=== PATIENT | male | born 1985 | race Caucasian/White ===

== ENCOUNTER 2017-03-10 11:24 | Emergency (ER) | payer SELFPAY ==
--- NOTE | 2017-03-10 11:34 | UC ---
Complaint Female HPI - HPI Summary HPI Summary: 32 YEAR OLD MALE PRESENTS WITH COMPLAINS OF LEFT TESTICULAR PAIN AND RETRACTION. - History Of Current Complaint Chief Complaint: UCGU Stated Complaint: TESTICULAR PAIN Time Seen by Provider: 03/10/17 11:33 Hx Obtained From: Patient Onset/Duration: Sudden Onset Timing: Constant Severity Initially: Moderate Severity Currently: Moderate Pain Scale Used: 0-10 Numeric - 5 Character: Sharp Aggravating Factor(s): Movement Alleviating Factor(s): Position - Allergies/Home Medications Allergies/Adverse Reactions: Allergies Allergy/AdvReac Type Severity Reaction Status Date / Time No Known Allergies Allergy Verified 03/10/17 12:02 Home Medications: Home Medications NK [No Home Medications Reported] 03/10/17 [History Confirmed 03/10/17] PMH/Surg Hx/FS Hx/Imm Hx Previously Healthy: Yes - Surgical History Surgical History: None - Family History Known Family History: Positive: None - Social History Alcohol Use: Daily Alcohol Amount: beer Substance Use Type: None Smoking Status (MU): Never Smoked Tobacco Review of Systems Constitutional: Negative Skin: Negative Eyes: Negative ENT: Negative Respiratory: Negative Cardiovascular: Negative Gastrointestinal: Negative Genitourinary: Dysuria, Frequency, Urgency Motor: Negative Neurovascular: Negative Musculoskeletal: Negative Neurological: Negative Psychological: Negative All Other Systems Reviewed And Are Negative: Yes Physical Exam Triage Information Reviewed: Yes Appearance: Well-Appearing Vital Signs: Initial Vital Signs Temp 37.5 C 03/10/17 11:27 Pulse 108 03/10/17 11:27 Resp 16 03/10/17 11:27 BP 141/94 03/10/17 11:27 Pulse Ox 100 03/10/17 11:27 Eye Exam: Normal ENT Exam: Normal Dental Exam: Normal Neck exam: Normal Neck: Positive: 1 Respiratory Exam: Normal Cardiovascular Exam: Normal Abdomen Description: Positive: Other: - LEFT TESTICULAR PAIN Musculoskeletal Exam: Normal Neurological Exam: Normal Psychological Exam: Normal Skin Exam: Normal Complaint Female Dx - Differential Dx/Diagnosis Provider Diagnoses: LEFT TESTICULAR PAIN/SWELLING Discharge - Discharge Plan Condition: Stable Disposition: HOME Patient Education Materials: Testicle Pain (ED), Scrotal Pain (ED) Referrals: No Primary Care Phys,NOPCP [Primary Care Provider] - Additional Instructions: PLEASE GO TO ER TO RULE OUT TORSION.
[2017-03-10 11:45] VITALS: BP 141/94
== END 2017-03-10 11:41 | disposition home or self-care (01) ==
LOC: UCEAST 11:24
DX: N50.812 Left testicular pain (principal); N50.89 Other specified disorders of the male genital organs
CPT/HCPCS: 99211; G0463

== ENCOUNTER 2017-03-10 12:00 | Emergency (ER) | payer SELFPAY ==
--- NOTE | 2017-03-10 13:59 | RAD ---
Indication: LEFT testicular pain. Comparison: No relevant prior exams available on the [facility] for comparison. Technique: Scrotal ultrasound. Report: 4.3 x 2.0 x 2.9 cm RIGHT testicle. 3.6 x 2.1 x 3.4 cm LEFT testicle. Normal bilateral testicular echotexture and symmetric normal range vascularity. No focal intratesticular lesions evident. 0.8 x 2.1 cm RIGHT epididymis head with normal range vascularity is remarkable for a 0.7 x 0.5 x 1.0 cm epididymal head cyst or spermatocele. 0.6 x 1.6 cm LEFT epididymis head with normal range vascularity is remarkable for a 0.3 cm epididymal head cyst or spermatocele. Small bilateral hydroceles. Negative for varicoceles. IMPRESSION: 1. No evidence for testicular torsion, epididymoorchitis, or presence of an intratesticular lesion. 2. RIGHT larger than LEFT epididymal head cysts versus spermatoceles without concern. 3. Small bilateral hydroceles.
[2017-03-10] MEDS ORDERED: Levofloxacin TAB* 500 MG PO ONE (14:29)
[2017-03-10] MEDS ORDERED: Ibuprofen TAB* 800 MG PO ONE (14:29)
--- NOTE | 2017-03-10 14:36 | ED ---
GI/ HPI - HPI Summary HPI Summary: Pt here w/ progressively worsening testicular pain. Has had 2 episodes of Lt testicular retraction over past month. First time was weeks ago during ejaculation. Second time was today during running. He admits to h/o testicular tenderness past few days - intermittent. Worse today and persistent with running. Radiates from testicle into lower pelvis and into groin. Better w/ rest. has not taken anything for this yet today. Admits to "malaise" 2 days ago - better after a good night's rest. Denies nasuea, vomiting, fever, chills or flank pain. He is able to urinate and denies hematuria, hematospermia, dysuria, frequency, hesitation. No h/o STD - monogomous with female partner and no concern for STD. - History of Current Complaint Chief Complaint: EDUrogenitalProblems Time Seen by Provider: 03/10/17 12:13 Stated Complaint: TESTICLE PAIN Hx Obtained From: Patient Pain Intensity: 7 - Allergy/Home Medications Allergies/Adverse Reactions: Allergies Allergy/AdvReac Type Severity Reaction Status Date / Time No Known Allergies Allergy Verified 03/10/17 12:02 PMH/Surg Hx/FS Hx/Imm Hx Previously Healthy: Yes Respiratory History: Reports: Hx Asthma - exercise induced - uses albuterol 2 x month History: Denies: Hx Kidney Infection, Hx Kidney Stones, Other Problems/Disorders Infectious Disease History: No Infectious Disease History: Denies: Traveled Outside the [place] in Last 30 Days - Family History Known Family History: Positive: None - Social History Occupation: Employed Full-time Lives: With Family Alcohol Use: Daily Alcohol Amount: beer Hx Substance Use: No Substance Use Type: Reports: None Hx Tobacco Use: No Smoking Status (MU): Never Smoked Tobacco Review of Systems Constitutional: Other - see HPI Eyes: Negative Cardiovascular: Negative Negative: Chest Pain Respiratory: Negative Negative: Shortness Of Breath Gastrointestinal: Negative Positive: see HPI Skin: Negative Negative: Rash Neurological: Negative Positive: Anxious All Other Systems Reviewed And Are Negative: Yes Physical Exam Triage Information Reviewed: Yes Vital Signs On Initial Exam: Initial Vitals Temp Pulse Resp BP Pulse Ox 97.9 F 123 18 161/87 100 03/10/17 12:02 03/10/17 12:02 03/10/17 12:02 03/10/17 12:02 03/10/17 12:02 Vital Signs Reviewed: Yes Appearance: Positive: Well-Appearing, Pain Distress - mild - noted with movement only - appears comfortable at rest, Thin Skin: Positive: Warm, Dry Head/Face: Positive: Normal Head/Face Inspection Eyes: Positive: EOMI ENT: Positive: Hearing grossly normal Respiratory/Lung Sounds: Positive: Breath Sounds Present Cardiovascular: Positive: Normal Abdomen Description: Positive: Nontender, Soft. Negative: CVA Tenderness (R), CVA Tenderness (L) Bowel Sounds: Positive: Present Male Genital Exam: Positive: no hernia, epididymal tenderness - Lt, other - Lt testicle is elevated compared to Rt. Negative: bleeding, erythema, testicular tenderness (R), testicular tenderness (L), urethral discharge Musculoskeletal: Positive: Normal, Strength/ROM Intact Neurological: Positive: Normal, Sensory/Motor Intact, Alert, Oriented to Person Place, Time, CN Intact II-III Psychiatric: Positive: Normal - concerned but calm and cooperative Diagnostics - Vital Signs Vital Signs Temp Pulse Resp BP Pulse Ox 03/10/17 12:13 97.9 F 123 18 161/87 100 03/10/17 12:02 97.9 F 123 18 161/87 100 - Laboratory Lab Statement: Any lab studies that have been ordered have been reviewed, and results considered in the medical decision making process. GIGU Course/Dx - Course Course Of Treatment: Discussed course of testing and tx w/ pt for this condition. He does not believe he has an STD therefore does not want empirical tx today - would rather provide urine sample for gonorrhea, chlamydia testing and simply start tx for e. coli today. He unfortunately urinated multiple times since here and most recently was 20 minutes ago. Will allow him to provide sample here in 2 hours and will call if (+) to tx as appropriate. He does have B /L epididymal cysts with inflammation and elevation of Lt testicle (appears retracted). Will f/u w/ urology this week as he is also concerned about fertility if this persists. - Diagnoses Provider Diagnoses: Hydrocele, bilateral, Epididymal cyst, Epididymitis Discharge - Discharge Plan Condition: Stable Disposition: HOME Prescriptions: Levofloxacin TAB* [Levaquin TAB*] 500 mg PO DAILY #9 tab Patient Education Materials: Epididymitis (ED), Hydrocele (ED) Referrals: Martín Blas MD [Medical Doctor] - Additional Instructions: Follow-up with Dr. Blas this week - call today to schedule an appointment. Complete antibiotics unless advised otherwise Provide urine sample before leaving today for gonorrhea, chalmydia testing as you are declining empirical tx for these conditions. *If you develop difficulty with urination, ab pain, flank pain, fever, chills, vomiting, blood in your urine, return to ED
[2017-03-10 16:18] VITALS: BP 132/88
[2017-03-10 16:19] LABS: Urine Bilirubin Negative (Negative); Urine Glucose Negative (Negative); Urine Nitrite Negative (Negative)
== END 2017-03-10 16:19 | disposition home or self-care (01) ==
LOC: ED 12:00
DX: N43.3 Hydrocele, unspecified (principal); N50.3 Cyst of epididymis; N45.1 Epididymitis
CPT/HCPCS: 76870; 81003; 87491; 87591; 99282; A9270-GY

== ENCOUNTER 2017-03-18 20:38 | Emergency (ER) | payer OTHER ==
[2017-03-18 23:06] VITALS: BP 123/84
--- NOTE | 2017-03-19 06:34 | ED ---
Jass Nuno Rebecca, scribed for Shawn Mckeon MD on 03/18/17 at 2115 . GI/ HPI - HPI Summary HPI Summary: Pt is a 32 y/o M who presents to ED c/o L testicular pain. Pt was evaluated by [facility] ED last week for similar sx during which he had an US done, showing epididymitis. He had a follow up with Dr. Blas today who advised the pt to come to [facility] ED if the pain returned or worsened. This afternoon while walking at work, the pain gradually began to return and is currently moderate, ranked 6/ 10. Teated with ice, Aleve and Ibuprofen RN DOCUMENTATION. Sx aggravated and alleviated by nothing, unchanged by walking. Additionally c/o slight nausea and scrotal redness. Denies difficulty urinating, hematuria, penile discharge, back pain, lumps in the groin. No recent trauma to the testicles. Negative FHx testicular torsion. - History of Current Complaint Chief Complaint: EDUrogenitalProblems Time Seen by Provider: 03/18/17 21:12 Stated Complaint: PAIN IN LT TESTICLE Hx Obtained From: Patient Onset/Duration: Still Present, Worse Since - This afternoon Current Severity: Moderate Pain Intensity: 6 Additional Locations for Males: Testicles - Left Associated Signs and Symptoms: Positive: Nausea. Negative: Back Pain, Hematuria Additional Signs & Symptoms: Negative: Penile Discharge Aggravating Factor(s): Nothing Alleviating Factor(s): Nothing - Allergy/Home Medications Allergies/Adverse Reactions: Allergies Allergy/AdvReac Type Severity Reaction Status Date / Time No Known Allergies Allergy Verified 03/10/17 12:02 PMH/Surg Hx/FS Hx/Imm Hx Respiratory History: Reports: Hx Asthma - exercise induced - uses albuterol 2 x month History: Denies: Hx Kidney Infection, Hx Kidney Stones, Other Problems/Disorders Infectious Disease History: No Infectious Disease History: Denies: Traveled Outside the [place] in Last 30 Days - Family History Known Family History: Positive: Other - No FHx testicular torsion - Social History Alcohol Use: Daily Alcohol Amount: beer Hx Substance Use: No Substance Use Type: Reports: None Hx Tobacco Use: No Smoking Status (MU): Never Smoked Tobacco Review of Systems Positive: Nausea Positive: pain - Left testicular pain, other - NEGATIVE: difficulty urinating. Negative: discharge, hematuria Positive: Other - NEGATIVE: back pain and lumps in the groin Positive: Other - Scrotal erythema All Other Systems Reviewed And Are Negative: Yes Physical Exam - Summary Physical Exam Summary: The patient is well-nourished in no acute distress and in no acute pain. The skin is warm and dry and skin color reflects adequate perfusion. HEENT: The head is normocephalic and atraumatic. The pupils are equal and reactive. The conjunctivae are clear and without drainage. Nares are patent and without drainage. Mouth reveals moist mucous membranes and the throat is without erythema and exudate. The external ears are intact. The ear canals are patent and without drainage. The tympanic membranes are intact. Respiratory: Chest is non-tender. Lungs are clear to auscultation and breath sounds are symmetrical and equal. Cardiovascular: Hear is regular rate and rhythm. There is no murmur or rub auscultated. There is no peripheral edema and pulses are symmetrical and equal. Abdomen: The abdomen is soft and non-tender. There are normal bowel sounds heard in all four quadrants and there is no organomegaly palpated. Musculoskeletal: There is no back pain noted. No CVA tenderness. Extremities are non-tender with full range of motion. There is good capillary refill. There is no peripheral edema or calf tenderness elicited. Genital: Bilateral inguinal adenopathy. He is circumcised. The right testicle is descended and nontender. The left testicle was edematous and vertical, not horizontal, in alignment. Epididymis was tender to palpation. The scrotum was intact. Neurological: Patient is alert and oriented to person, place and time. The patient has symmetrical motor strength in all four extremities. Psychiatric: The patient has an appropriate affect and does not exhibit any anxiety or depression. Triage Information Reviewed: Yes Vital Signs On Initial Exam: Initial Vitals Temp Pulse Resp BP Pulse Ox 98.7 F 84 17 175/91 100 03/18/17 20:42 03/18/17 20:42 03/18/17 20:42 03/18/17 20:42 03/18/17 20:42 Vital Signs Reviewed: Yes Diagnostics - Vital Signs Vital Signs Temp Pulse Resp BP Pulse Ox 03/18/17 20:42 98.7 F 84 17 175/91 100 - Laboratory Lab Statement: Any lab studies that have been ordered have been reviewed, and results considered in the medical decision making process. - Ultrasound No standard instances Ultrasound Interpretation Completed By: Radiologist - Testicular US: No testicular torsion bilaterally. Bilateral epididymal cysts, 9 mm on right and 3 mm on left reportedly also present on 03/10/17 ultrasound per technologist's notes (images unavailable for comparison at time of dictation). Small bilateral hydroceles. ED physician reviewed radiology report and agrees. Re-Evaluation - Re-Evaluation First Eval Re-Evaluation Time: 22:54 Comment: Reviewed US and answered questions. GIGU Course/Dx - Course Assessment/Plan: Pt is a 32 y/o M who presents to ED c/o L testicular pain. Pt was evaluated by [facility] ED last week for similar sx during which he had an US done , showing epididymitis. He had a follow up with Dr. Blas today who advised the pt to come to [facility] ED if the pain returned or worsened. This afternoon while walking at work, the pain gradually began to return and is currently moderate, ranked 6/10. Teated with ice, Aleve and Ibuprofen RN DOCUMENTATION. Sx aggravated and alleviated by nothing, unchanged by walking. Additionally c/o slight nausea and scrotal redness. Denies difficulty urinating, hematuria, penile discharge, back pain, lumps in the groin. No recent trauma to the testicles. Negative FHx testicular torsion. Testicular US reveals "No testicular torsion bilaterally. Bilateral epididymal cysts, 9 mm on right and 3 mm on left reportedly also present on 03/10/17 ultrasound per technologist's notes (images unavailable for comparison at time of dictation). Small bilateral hydroceles." Pt will be D/C to home with Dx of testicular pain, left and a follow up with Dr. Blas as directed with instructions to continue Aleve. Pt understands and is agreeable with this plan. Elevated BP noted and advised to f/u. - Diagnoses Differential Diagnoses - Male: Epididymitis, Testicular Torsion Provider Diagnoses: Testicular pain, left Discharge - Discharge Plan Condition: Stable Disposition: HOME Patient Education Materials: Testicle Pain (ED) Referrals: Martín Blas MD [Medical Doctor] - (As directed. ) Additional Instructions: Continue taking Aleve, 2 tabs in the morning and 2 tabs in the evening. The documentation as recorded by the Jass moy Rebecca accurately reflects the service I personally performed and the decisions made by , Shawn Mckeon MD.
--- NOTE | 2017-03-19 07:41 | RAD ---
INDICATION: Left testicular pain. COMPARISON: Comparison is made with a prior testicular ultrasound from March 10, 2017. TECHNIQUE: Multiple real-time images of the testicles were obtained including color Doppler images and Doppler tracings. FINDINGS: The testicles are normal in size, shape and echogenicity. The right testicle measured 4.0 x 2.7 x 3.1 cm and the left testicle measured 3.9 x 2.6 x 3.6 cm. No intratesticular mass is seen. There is symmetric vascular flow within both testicles. There are small bilateral hydroceles. There is a right epididymal cyst measuring 7 x 5 x 9 mm and a small left epididymal cyst measuring 2 x 2 x 3 mm. These are unchanged from the prior study. IMPRESSION: 1. NO EVIDENCE FOR TESTICULAR TORSION OR EPIDIDYMITIS. 2. SMALL BILATERAL HYDROCELES. 3. BILATERAL EPIDIDYMAL CYSTS, UNCHANGED.
== END 2017-03-18 23:04 | disposition home or self-care (01) ==
LOC: ED 20:38
DX: N50.812 Left testicular pain (principal); R11.0 Nausea; M54.9 Dorsalgia, unspecified
CPT/HCPCS: 76870; 99282

== ENCOUNTER 2017-03-24 10:16 | Emergency (ER) | payer OTHER ==
[2017-03-24 12:17] VITALS: BP 118/68
--- NOTE | 2017-03-24 12:44 | UC ---
Back Pain HPI - HPI Summary HPI Summary: Patient presents with complaints of b/l flank pain x several days. He states the pain is constant, but worse at night. He describes the pain and achy and denies any new activity that might explain the pain. Denies painful BM, normal BM yesterday. He states he was recently treated for epididymitis and states his testicle pain has improved and he had two US, and was seen by Dr. Meza, and is schedule to see him again in one month. Denies dysuria, hematuria, or penile discharge. - History of Current Complaint Chief Complaint: UCBackPain Stated Complaint: LOWER BACK PAIN Time Seen by Provider: 03/24/17 12:02 Hx Obtained From: Patient Onset/Duration: Gradual Onset, Lasting Days Timing: Constant Severity Initially: Mild Severity Currently: Mild Back Pain: Is Discrete @ - flanks Character: Aching Aggravating: Walking Alleviating: Nothing Associated Signs And Symptoms: Positive: Negative - Risk Factors AAA Risk Factors: Negative TAD Risk Factors: Negative Cauda Equina Risk Factors: Negative - Allergies/Home Medications Allergies/Adverse Reactions: Allergies Allergy/AdvReac Type Severity Reaction Status Date / Time No Known Allergies Allergy Verified 03/24/17 11:03 Home Medications: Home Medications LoraTADine TAB(NF) [Claritin 10 MG TAB(NF)] 03/24/17 [History] PMH/Surg Hx/FS Hx/Imm Hx Previously Healthy: Yes - recent epiditymitis - Surgical History Surgical History: None - Family History Known Family History: Positive: None, Other - No FHx testicular torsion - Social History Occupation: Student Lives: Alone Alcohol Use: Daily Alcohol Amount: beer Substance Use Type: None Smoking Status (MU): Never Smoked Tobacco Review of Systems Musculoskeletal: Myalgia All Other Systems Reviewed And Are Negative: Yes Physical Exam Triage Information Reviewed: Yes Appearance: Well-Appearing Vital Signs: Initial Vital Signs Temp 99 F 03/24/17 11:04 Pulse 84 03/24/17 11:04 Resp 16 03/24/17 11:04 BP 151/96 03/24/17 11:04 Pulse Ox 100 03/24/17 11:04 Vital Signs Reviewed: Yes Eye Exam: Normal ENT Exam: Normal Neck exam: Normal Respiratory Exam: Normal Cardiovascular Exam: Normal Abdominal Exam: Normal Musculoskeletal: Positive: Strength Intact, ROM Intact, No Edema, Other: - mild tenderness of b/l flanks on palpation. vertebrea midline without step-off or deformities, no areas of erythma, eccymosis, or edema. Nontender midline on palation. Skin Exam: Normal Back Pain Course/Dx - Course Course Of Treatment: Patient presents with back pain on flanks. UA was negative , CMP is pending. His examination is consistent with muscular-skelatal pain. I recommend that he take tylenol and see if his symtpoms improve in the next few days. If for any reason his symtpoms do nit improve as anticipated he was encouraged to follow up with Dr. Meza. - Differential Dx/Diagnosis Differential Diagnosis/HQI/PQRI: Other - back pain flank pain Provider Diagnoses: back pain. flank pain Discharge - Discharge Plan Condition: Stable Disposition: HOME Patient Education Materials: Flank Pain (ED) Referrals: No Primary Care Phys,NOPCP [Primary Care Provider] - Martín Blas MD [Medical Doctor] -
[2017-03-24 19:30] LABS: Albumin 5.1 g/dL (3.2-5.2); BUN/Creatinine Ratio 15.8 (8-20); Calcium 9.8 mg/dL (8.6-10.3); EGFR African American 153.8 (>60); EGFR Non-African American 119.6 (>60); Globulin 2.3 g/dL (2-4); Potassium 4.3 mmol/L (3.5-5.0); Total Protein 7.4 g/dL (6.4-8.9)
== END 2017-03-24 12:34 | disposition home or self-care (01) ==
LOC: UCEAST 10:16
DX: M54.5 Low back pain (principal); M79.1 Myalgia
CPT/HCPCS: 36415; 80053; 81003; 99212; G0463

== ENCOUNTER 2017-03-26 10:32 | Emergency (ER) | payer OTHER ==
[2017-03-26 10:50] VITALS: BP 137/74
--- NOTE | 2017-03-28 00:03 | UC ---
Lower Extremity/Ankle HPI - HPI Summary HPI Summary: 32 y/o male presents to the urgent care c/o B/L leg pain with tingling since yesterday. Pain is 3/10. Pt reports he was here at the clinic 2 days ago and Dx lower back pain and flank pain, Rx Tlenol to alleviate symptoms. However, he feels is developing B/L lowr leg pain and joint pain. He also states he recently finish taking Levofloxacin PO on 03/10/[address] Wilkins for epididymitis. He also states he has had tick bite in the pst w/o any prophylactic treatment. Since he has been feeling with different joint pain, malaise and low grade fever at home he request the Lyme serology. Pt denies rash , CARREON, SOB, chest pain, N/V/D or urinary symptoms. - History of Current Complaint Chief Complaint: UCBackPain Stated Complaint: LEG AND FOOT PAIN Time Seen by Provider: 03/26/17 11:36 Hx Obtained From: Patient Onset/Duration: Gradual Onset, Lasting Days - 2, Still Present Severity Initially: Mild Severity Currently: Mild Pain Intensity: 3 Pain Scale Used: 0-10 Numeric Aggravating Factor(s): Nothing Alleviating Factor(s): Nothing Able to Bear Weight: Yes - Risk Factors Gout Risk Factors: Negative DVT Risk Factors: Negative Septic Arthritis Risk Factor: Negative - Allergies/Home Medications Allergies/Adverse Reactions: Allergies Allergy/AdvReac Type Severity Reaction Status Date / Time No Known Allergies Allergy Verified 03/26/17 10:43 PMH/Surg Hx/FS Hx/Imm Hx Previously Healthy: Yes Respiratory History: Asthma - Surgical History Surgical History: None - Family History Known Family History: Positive: Cardiac Disease - Social History Occupation: Employed Full-time Lives: With Family Alcohol Use: Occasionally Alcohol Amount: beer Substance Use Type: None Smoking Status (MU): Never Smoked Tobacco Review of Systems Constitutional: Fever - low grade fever at home Skin: Negative Eyes: Negative ENT: Negative Respiratory: Negative Cardiovascular: Negative Gastrointestinal: Negative Genitourinary: Negative Motor: Negative Neurovascular: Negative Musculoskeletal: Other: - B/L lower leg pain with tingling Neurological: Negative Psychological: Negative Is Patient Immunocompromised?: No All Other Systems Reviewed And Are Negative: Yes Physical Exam Triage Information Reviewed: Yes Appearance: Well-Appearing, No Pain Distress, Well-Nourished Vital Signs: Initial Vital Signs Temp 98 F 03/26/17 10:44 Pulse 78 03/26/17 10:44 Resp 16 03/26/17 10:44 BP 137/74 03/26/17 10:44 Pulse Ox 100 03/26/17 10:44 Vital Signs Reviewed: Yes Eye Exam: Normal Eyes: Positive: Conjunctiva Clear - PERRLA, EOMI ENT Exam: Normal ENT: Positive: Normal ENT inspection, Hearing grossly normal, Pharynx normal, TMs normal Neck exam: Normal Neck: Positive: Supple, Nontender, No Lymphadenopathy Respiratory Exam: Normal Respiratory: Positive: Chest non-tender, Lungs clear, Normal breath sounds Cardiovascular Exam: Normal Cardiovascular: Positive: RRR, No Murmur, Pulses Normal, Brisk Capillary Refill Abdominal Exam: Normal Abdomen Description: Positive: Nontender, No Organomegaly, Soft. Negative: CVA Tenderness (R), CVA Tenderness (L) Bowel Sounds: Positive: Present Musculoskeletal Exam: Normal Musculoskeletal: Positive: Strength Intact, ROM Intact, No Edema, Other: - B/L calves homans sign negative Neurological Exam: Normal Psychological Exam: Normal Skin Exam: Normal Lower Extremity Course/Dx - Course Course Of Treatment: 32 y/o male presents to the urgent care c/o B/L leg pain with tingling since yesterday. Pain is 3/10. Pt reports he was here at the clinic 2 days ago and Dx lower back pain and flank pain, Rx Tlenol to alleviate symptoms. However, he feels is developing B/L lowr leg pain and joint pain. He also states he recently finish taking Levofloxacin PO on 03/10/[address] Wilkins for epididymitis. He also states he has had tick bite in the pst w/o any prophylactic treatment. Since he has been feeling with different joint pain , malaise and low grade fever at home he request the Lyme serology. Pt denies rash, CARREON, SOB, chest pain, N/V/D or urinary symptoms. HX obtained. PE WNL. Pt requests Lyme serology and Prophylactic treatment. Pt Rx Doxicycline PO. Pt advised to take full course of antibiotic even if serology retunr negative. Pt advised to f/u with DR Abrams for further management on his symptoms. Pt understood and agreed with plan of care. - Differential Dx/Diagnosis Differential Diagnosis/HQI/PQRI: Arthritis, Contusion, Sprain, Tendonitis, Other - tick born illness, DVT, Provider Diagnoses: 1-Acute joint pain. 2- tick exposure Discharge - Discharge Plan Condition: Stable Disposition: HOME Prescriptions: DOXYcycline CAP(*) [DOXYcycline 100MG CAP(*)] 100 mg PO BID #28 cap Ibuprofen TAB* [Motrin TAB* 800 MG] 800 mg PO Q6H #30 tab Patient Education Materials: Lyme Disease (ED) Referrals: [facility] [Outside] - 1 Week Joey Abrams MD [Medical Doctor] - 1 Week No Primary Care Phys,NOPCP [Primary Care Provider] - Additional Instructions: 1- Please take full course of antibiotic to avoid resistance. 2- Lyme Serology and blood work still pending. You will be notified of results 3- F/u with DR Abrams or a PCP in 1 week for further management in Lyme Disease
== END 2017-03-26 12:04 | disposition home or self-care (01) ==
LOC: UCEAST 10:32
DX: M25.50 Pain in unspecified joint (principal); Z11.4 Encounter for screening for human immunodeficiency virus [HIV]; J45.909 Unspecified asthma, uncomplicated; Z20.7 Contact with and (suspected) exposure to pediculosis, acariasis and other infestations
CPT/HCPCS: 36415; 86618; 86703; 99212; G0463

== ENCOUNTER 2017-08-20 17:22 | Emergency (ER) | payer SELFPAY ==
[2017-08-20 19:46] VITALS: BP 137/91
--- NOTE | 2017-08-20 20:42 | UC ---
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 Now has some "brain fogginess" and localized left parietal scalp tenderness, denies n/v/LOC - History Of Current Complaint Chief Complaint: UCHeadInjury Stated Complaint: HEAD INJURY Time Seen by Provider: 08/20/17 20:26 Hx Obtained From: Patient Onset/Duration: Sudden Onset Severity Currently: Moderate Pain Intensity: 3 Character: Dull - Allergies/Home Medications Allergies/Adverse Reactions: Allergies Allergy/AdvReac Type Severity Reaction Status Date / Time No Known Allergies Allergy Verified 08/20/17 17:32 PMH/Surg Hx/FS Hx/Imm Hx - Additional Past Medical History Additional PMH: none - Surgical History Surgical History: None - Family History Known Family History: Positive: None, Cardiac Disease, Other - No FHx testicular torsion - Social History Alcohol Use: Occasionally Alcohol Amount: beer Substance Use Type: None Smoking Status (MU): Never Smoked Tobacco Review of Systems Constitutional: Negative Skin: Negative Eyes: Negative ENT: Negative Respiratory: Negative Cardiovascular: Negative Gastrointestinal: Negative Genitourinary: Negative Motor: Negative Neurovascular: Other - CARREON Musculoskeletal: Negative Neurological: Negative Psychological: Negative Is Patient Immunocompromised?: No All Other Systems Reviewed And Are Negative: Yes Physical Exam Triage Information Reviewed: Yes Appearance: Well-Appearing Vital Signs: Initial Vital Signs Temp 36.8 C 08/20/17 17:28 Pulse 106 08/20/17 17:28 Resp 12 08/20/17 17:28 BP 155/94 08/20/17 17:28 Pulse Ox 100 08/20/17 17:28 Vital Signs Reviewed: Yes Eyes: Positive: Conjunctiva Clear, Other: - EOMI, PERRL Dental Exam: Normal Neck exam: Normal Cardiovascular Exam: Normal Musculoskeletal Exam: Normal Neurological Exam: Normal Neurological: Positive: Alert Skin: Positive: Other - mild localized TTP on left parietal region in scalp with mild swelling, no skin disruption noted Head Injury Course/Dx - Differential Dx/Diagnosis Provider Diagnoses: post concussion Headache Discharge - Discharge Plan Condition: Stable Disposition: HOME Patient Education Materials: Concussion (ED), Post Concussion Syndrome (ED) Referrals: No Primary Care Phys,NOPCP [Primary Care Provider] - Additional Instructions: If increase in lethargy, brain fogginess, nasuea/vomiting occurs, go to ER for further ER and CT of head
== END 2017-08-20 21:03 | disposition home or self-care (01) ==
LOC: UCEAST 17:22
DX: F07.81 Postconcussional syndrome (principal); G44.309 Post-traumatic headache, unspecified, not intractable
CPT/HCPCS: 99212; G0463

== ENCOUNTER → 2018-05-29 18:57 | Emergency (ER) | payer OTHER ==
[~2018-05-29 18:57] MED LIST: Ibuprofen TAB* 800 MG PO ONE; NS 0.9% 1000 ML* 1,000 ML IV ONE
--- NOTE | 2018-05-29 19:39 | ED ---
Complex/Multi-Sys Presentation - HPI Summary HPI Summary: Pt. is a 33 y.o male who presents to the ER for chest pressure, SOB, upper abd. pain/bloating x 3 days. Pt. denies past medical hx. Denies URI sxs, cough, vomiting, diarrhea. Nothing makes sxs better or worse. Pt. states he has a hx of exercise induced asthma but states he has not needed to use inhaler in years. Symptoms are moderate in severity. Does not smoke, no hx of surgery. Family hx [place] in grandparents when they were older. - History Of Current Complaint Chief Complaint: EDChestPainROMI Time Seen by Provider: 05/29/18 19:26 Hx Obtained From: Patient - Allergies/Home Medications Allergies/Adverse Reactions: Allergies Allergy/AdvReac Type Severity Reaction Status Date / Time fluoroquinolones Allergy Numbness Uncoded 05/29/18 19:13 And Tingling PMH/Surg Hx/FS Hx/Imm Hx Previously Healthy: Yes Respiratory History: Reports: Hx Asthma - exercise induced - uses albuterol 2 x month History: Denies: Hx Kidney Infection, Hx Kidney Stones, Other Problems/Disorders Infectious Disease History: No Infectious Disease History: Denies: Hx Clostridium Difficile, Hx Hepatitis, Hx Human Immunodeficiency Virus (HIV), Hx of Known/Suspected MRSA, Hx Shingles, Hx Tuberculosis, Hx Known/ Suspected VRE, Hx Known/Suspected VRSA, History Other Infectious Disease, Traveled Outside the [place] in Last 30 Days - Family History Known Family History: Positive: None, Cardiac Disease, Other - No FHx testicular torsion - Social History Occupation: Employed Full-time Lives: With Family Alcohol Use: Occasionally Alcohol Amount: beer Hx Substance Use: No Substance Use Type: Reports: None Hx Tobacco Use: No Smoking Status (MU): Former Smoker Review of Systems Positive: Fever Eyes: Negative ENT: Negative Positive: Palpitations, Chest Pain Positive: Shortness Of Breath. Negative: Cough Positive: Abdominal Pain. Negative: Vomiting, Diarrhea, Nausea Genitourinary: Negative Musculoskeletal: Negative Skin: Negative Neurological: Negative All Other Systems Reviewed And Are Negative: Yes Physical Exam Triage Information Reviewed: Yes Vital Signs On Initial Exam: Initial Vitals Temp Pulse Resp BP Pulse Ox 100.2 F 114 15 138/97 100 05/29/18 19:06 05/29/18 19:06 05/29/18 19:06 05/29/18 19:06 05/29/18 19:06 Vital Signs Reviewed: Yes Appearance: Positive: Well-Appearing - Pt. sitting up in bed in NAD. S.O present. Skin: Positive: Warm, Dry Head/Face: Positive: Normal Head/Face Inspection Eyes: Positive: Normal, EOMI Neck: Positive: Supple Respiratory/Lung Sounds: Positive: Clear to Auscultation, Breath Sounds Present Cardiovascular: Positive: Normal, RRR. Negative: Murmur Abdomen Description: Positive: Other: - Abd. is soft with mild tenderness to epigastric region, right and left upper quadrant. Negative Gabriel sign. Neurological: Positive: Normal, CN Intact II-III Psychiatric: Positive: Affect/Mood Appropriate Diagnostics - Vital Signs Vital Signs Temp Pulse Resp BP Pulse Ox 05/29/18 19:25 88 05/29/18 19:06 100.2 F 114 15 138/97 100 - Laboratory Result Diagrams: 05/29/18 19:40 05/29/18 19:40 Lab Statement: Any lab studies that have been ordered have been reviewed, and results considered in the medical decision making process. Complex Multi-Symp Course/Dx Course Of Treatment: Pt. presenting for SOB, abd. bloating. He is febrile in ED at 100.2F, HR 114, bp 138/92, O2 saturation is 100% on RA which is normal. ECG done at 1903 shows a sinus rhtyhm of 97bpm, normal axis, minimal ST depression in inferior leads. Will obtain labs and cxr. Pt. started on IV fluids and motrin ordered for fever. Will consider GB U/S. CBC and CMP are normal. Negative troponin and ddimer. Chest xray is negative for acute findings. GB u/s is negative for acute findings, per virtual radiology. Case discussed with Dr. Lopez and plan will be to dc home. Suspect a viral syndrome. On re-exam pt. is resting comfortably. Results were discussed. Suspect possible gastritis vs viral syndrome vs pluerisy. Recommend trying OTC antacid. Tylenol for pain and fever as directed. To call PCP tomorr for a close f.u apt. and return to ER if sxs change or worsen. Pt. understands and agrees with plan. - Diagnoses Provider Diagnoses: Atypical chest pain, Viral syndrome Discharge - Sign-Out/Discharge Documenting (check all that apply): Patient Departure - Discharge Plan Condition: Good Disposition: HOME Patient Education Materials: Chest Pain (ED), Viral Syndrome (ED) Referrals: Tommy Joshi PIZZA [facility]F [Primary Care Provider] - Additional Instructions: Call your PCP tomorrow for a close follow up appointment Tylenol for discomfort and fever as directed Increase fluids and rest Can try taking an over the counter antacids and Pepcid, Tums, Maalox Avoid foods with spice, acid, caffeine, alcohol Return to ER if symptoms change or worsen - Billing Disposition and Condition Condition: GOOD Disposition: Home
[2018-05-29 19:51] LABS: ABS Basophils 0.1 10^3/ul (0-0.2); ABS Eosinophils 0.1 10^3/ul (0-0.6); ABS Lymphocytes 1.4 10^3/ul (1.0-4.8); ABS Monocytes 0.4 10^3/ul (0-0.8); ABS Neutrophils 4.5 10^3/ul (1.5-7.7); ABS Nucleated RBC 0 10^3/ul; Eosinophil % 1.3 % (0-6); Hematocrit 44 % (42-52); Hemoglobin 15.2 g/dl (14.0-18.0); Lymphocyte % 21.5 % (25-47); Mean Corpuscular HGB Conc 35 g/dl (31-36); Mean Corpuscular Hemoglobin 31 pg (27-31); Mean Corpuscular Volume 88 fL (80-94); Nucleated Red Blood Cells % 0.1; Platelet Count 188 10^3/ul (150-450); Red Blood Count 4.97 10^6/ul (4.00-5.40); Red Cell Distribution Width 13 % (10.5-15); White Blood Count 6.3 10^3/ul (3.5-10.8)
[2018-05-29 20:08] LABS: EGFR Non-African American 95.3 (>60)
[2018-05-29 22:02] VITALS: BP 139/92
== END | disposition home or self-care (01) ==
LOC: ED 18:57
DX: R07.89 Other chest pain (principal); B34.9 Viral infection, unspecified; Z87.891 Personal history of nicotine dependence; Z82.49 Family history of ischemic heart disease and other diseases of the circulatory system
CPT/HCPCS: 36415; 71046; 76705; 80053; 83690; 84484; 85025; 85379; 86140; 93005; 96360; 99283; A9270-GY

== ENCOUNTER 2018-12-08 14:42 | Emergency (ER) | payer OTHER ==
[2018-12-08 15:17] VITALS: BP 131/92
--- NOTE | 2018-12-08 15:31 | UC ---
Lower Extremity/Ankle HPI - HPI Summary HPI Summary: 33-year-old male presents with 6 day history of right great toe pain. States he was descending some stairs while carrying a bookcase and missed a step causing a twisting injury to his right foot. States he has had persistent pain since that time. Reports initially had some swelling however has diminished over the last couple of days. Still has some bruising present. He was able to walk and bear weight immediately after the injury. Denies numbness or tingling. - History of Current Complaint Chief Complaint: UCLowerExtremity Stated Complaint: TOE INJURY Time Seen by Provider: 12/08/18 15:04 Hx Obtained From: Patient Pain Intensity: 5 - Allergies/Home Medications Allergies/Adverse Reactions: Allergies Allergy/AdvReac Type Severity Reaction Status Date / Time fluoroquinolones Allergy Numbness Uncoded 12/08/18 15:18 And Tingling Home Medications: Home Medications [place]-3 Fatty Acids (Nf) [Fish Oil (NF)] 1,000 mg PO DAILY 12/08/18 [History Confirmed 12/08/18] PMH/Surg Hx/FS Hx/Imm Hx Previously Healthy: Yes - denies significant past medical history - Surgical History Surgical History: Yes Surgery Procedure, Year, and Place: cyst on wrist removed - Family History Known Family History: Positive: Cardiac Disease - Social History Occupation: Employed Full-time Lives: With Family Alcohol Use: Daily Alcohol Amount: beer Substance Use Type: None Smoking Status (MU): Former Smoker Review of Systems All Other Systems Reviewed And Are Negative: Yes Constitutional: Positive: Negative Skin: Positive: Bruising Respiratory: Positive: Negative Cardiovascular: Positive: Negative Gastrointestinal: Positive: Negative Genitourinary: Positive: Negative Motor: Negative: Weakness Neurovascular: Negative: Decreased Sensation Musculoskeletal: Positive: Other: - see HPI Neurological: Positive: Negative Is Patient Immunocompromised?: No Physical Exam - Summary Physical Exam Summary: GENERAL APPEARANCE: Well developed, well nourished, alert and cooperative, and appears to be in no acute distress. CARDIAC: Normal S1 and S2. No S3, S4 or murmurs. Rhythm is regular. There is no peripheral edema, cyanosis or pallor. Extremities are warm and well perfused. Capillary refill is less than 2 seconds. Peripheral pulses intact. LUNGS: Clear to auscultation without rales, rhonchi, wheezing or diminished breath sounds. ABDOMEN: Positive bowel sounds. Soft, nondistended, nontender. No guarding or rebound. No masses or hepatosplenomegally. MUSKULOSKELETAL: Normal muscular development. Limping gait. EXTREMITIES: Tenderness to the medial aspect of the PIP of the right great toe with ecchymosis. No gross deformity, erythema, or edema. Circulation and sensation intact. SKIN: Skin normal color, texture and turgor. Triage Information Reviewed: Yes Vital Signs: Initial Vital Signs Temp 98 F 12/08/18 15:13 Pulse 92 12/08/18 15:13 Resp 16 12/08/18 15:13 BP 131/92 12/08/18 15:13 Pulse Ox 99 12/08/18 15:13 Vital Signs Reviewed: Yes Diagnostics - Radiology No standard instances Radiology Interpretation Completed By: Radiologist Summary of Radiographic Findings: Order Information: TOE RIGHT GREAT. Accession Number: [id number]. CPT: 21747. HISTORY: pain, bruising, s/p injury . COMPARISONS: December 17, 2005. VIEWS: 3, Frontal, lateral, and oblique views of the first digit of the right foot. FINDINGS: BONE DENSITY: Normal. BONES: There is a nondisplaced fracture along the base of the medial aspect of the proximal phalanx of the first digit with articular extension. JOINTS: There is no arthropathy. ALIGNMENT: There is no dislocation. SOFT TISSUES: Unremarkable. OTHER FINDINGS: None. IMPRESSION: NONDISPLACED FRACTURE OF THE BASE OF THE PROXIMAL PHALANX OF THE FIRST DIGIT Lower Extremity Course/Dx - Course Course Of Treatment: 33-year-old male presents with 6 day history of right great toe pain. States he was descending some stairs while carrying a bookcase and missed a step causing a twisting injury to his right foot. States he has had persistent pain since that time. Reports initially had some swelling however has diminished over the last couple of days. Still has some bruising present. He was able to walk and bear weight immediately after the injury. Denies numbness or tingling. Afebrile. Vital signs stable. Patient had tenderness to the medial aspect of the PIP of the right great toe with ecchymosis. No gross deformity, erythema, or edema. Circulation and sensation intact. Remainder of exam otherwise unremarkable. X-ray showed a nondisplaced fracture at the base of the proximal phalanx. Patient was placed in a postop shoe by the RN. Circulation sensation were intact post-application. Recommending conservative treatment including [id number] analgesics and RICE. He is to follow-up with orthopedic surgery in a week for reevaluation and treatment. Anticipatory guidance and warning symptoms were reviewed with the patient. Verbalizes understanding and agrees with plan of care. - Differential Dx/Diagnosis Differential Diagnosis/HQI/PQRI: Contusion, Dislocation, Fracture (Closed), Sprain Provider Diagnosis: Closed fracture of right great toe Discharge - Sign-Out/Discharge Documenting (check all that apply): Patient Departure All imaging exams completed and their final reports reviewed: Yes - Discharge Plan Condition: Stable Disposition: HOME Patient Education Materials: Toe Fracture (ED) Referrals: Tommy Joshi NP [Primary Care Provider] - Ruth Allen MD [Medical Doctor] - 7 Days Additional Instructions: The x-ray performed in the clinic today showed a fracture of the proximal phalanx of the right great toe. Rest the foot as much as possible. You may continue to walk and bear weight as tolerated. Wear the post-op shoe that was provided to you in the clinic. You may remove to shower or sleep but should wear at all other times. Apply ice to the affected area for 15-20 minutes at least 4 times a day to help with the pain and swelling. Elevate the foot to help reduce swelling. Take acetaminophen (Tylenol) or ibuprofen (Advil, Motrin) according to directions as needed for pain. Follow up with orthopedic surgery in 7 days for further evaluation and treatment. Call for appointment. Seek immediate medical attention if you have severe pain not managed with pain medication, you are unable to walk or bear any weight, develop numbness or tingling in the foot or toe(s), or have any worsening of symptoms. - Billing Disposition and Condition Condition: STABLE Disposition: Home
== END 2018-12-08 15:44 | disposition home or self-care (01) ==
LOC: UCEAST 14:42
DX: S92.401A Displaced unspecified fracture of right great toe, initial encounter for closed fracture (principal); Z88.8 Allergy status to other drugs, medicaments and biological substances; Z87.891 Personal history of nicotine dependence; X50.0XXA Overexertion from strenuous movement or load, initial encounter; Y92.9 Unspecified place or not applicable
CPT/HCPCS: 99212; G0463